=== PATIENT | male | born 2000 | race Caucasian/White ===

== ENCOUNTER 2021-02-26 16:55 | Emergency (ER) | payer OTHER, MEDICAID, SELFPAY ==
[2021-02-26 16:59] VITALS: BP 129/49; PULSE 80; RESP 19; TEMP 36.6; O2SAT 98; BMI 20.7
--- NOTE | 2021-02-26 18:55 | ED.WOUNDLAC ---
HPI - Wound/Laceration General Chief Complaint: Wound/Laceration Stated Complaint: Hand lac/Work injury Source: patient Mode of arrival: ambulatory Limitations: no limitations History of Present Illness HPI narrative: 20-year-old male presents to ED for right wrist laceration caused by Scissor he was using to cut up paper. Patient unknown when last tetanus shot. Patient denies any other trauma. Patient has a laceration occurred around today around 03:00 o'clock. Patient has complete range of motion of wrist and denies any numbness/tingling feeling Related Data Allergies Allergy/AdvReac Type Severity Reaction Status Date / Time No Known Allergies Allergy Verified 02/26/21 18:56 Review of Systems Review of Systems: Yes all other systems are reviewed and are negative Constitutional: Constitutional: Reports as per HPI and Reports no additional constitutional complaints Eyes: Eyes: Reports as per HPI and Reports no additional eye complaints ENT: Reports system reviewed and no additional complaints, except as documented and Reports as per HPI Cardiovascular: Cardiovascular: Reports as per HPI and Reports no additional cardiovascular complaints Respiratory: Respiratory: Reports as per HPI and Reports no additional respiratory complaints Gastrointestinal: Gastrointestinal: Reports as per HPI and Reports no additional gastrointestinal complaints Genitourinary: Genitourinary: Reports no additional male genitourinary complaints and Reports as per HPI Musculoskeletal: Musculoskeletal: Reports no additional musculoskeletal complaints and Reports as per HPI Comments: Right wrist laceration Integumentary/Breasts: Skin/Breast: Reports system reviewed and no additional complaints, except as docu and Reports as per HPI Neurologic: Reports system reviewed and no additional complaints, except as documented and Reports as per HPI Psychiatric: Psychiatric: Reports no additional psychiatric complaints and Reports as per HPI [facility] Social History Social History Advance Directives: No Advance Directives Information Provided: No Physical Exam Vital Signs: Vital Signs: Last Vital Signs Temp 98 F 02/26/21 16:59 Pulse 80 02/26/21 16:59 Resp 19 02/26/21 16:59 BP 129/49 L 02/26/21 16:59 Pulse Ox 98 02/26/21 16:59 Body Mass Index 20.7 Const: General: cooperative, healthy appearing, comfortable, no acute distress, well developed, alert, awake and Physically active Orientation/consciousness: patient oriented x3 HENMT: Head: Yes normal to inspection, Yes No palpable skull fracture present, Yes normocephalic, Yes atraumatic, No abrasion, No Acrocyanosis present, No Flores's sign, No contusion, No cranial bruits, No hematoma, No laceration, No occipital foramen tenderness, No palpable skull fracture, No raccoon eyes, No scalp lesion, No scalp tenderness, No Temporal artery tenderness present and No periorbital ecchymosis Eyes: General: appearance normal, both eyes and all related structures Neck: Neck: Yes normal visual inspection, Yes full ROM, Yes no lymphadenopathy, Yes no meningeal signs, Yes trachea midline, Yes supple and No tender Chest: Chest palpation & inspection: normal inspection of the chest and normal palpation of entire chest wall Resp: Effort & Inspection: normal respiratory effort and able to speak in complete sentences Auscultation: clear to auscultation bilaterally Cardio: Jugular venous distension: no JVD Heart sounds: S1 normal heart sound present and S2 normal heart sound present GI: Inspection: Yes normal to inspection and No abdominal wall ecchymosis Palpation (GI): Soft to palpation, not firm, nontender, no guarding and not rigid : General: No CVA tenderness and Yes no CVA tenderness Back/Spine/Pelvis: Back: no CVA tenderness, No CVA tenderness and No back tenderness Skin: General skin exam: no rashes or lesions noted and elasticity normal Neuro: General: patient oriented x3, gait normal, no meningeal signs and CN's II-XI intact bilaterally Cranial nerves: Yes CN's II-XII intact bilaterally Extrem: General: Yes normal to inspection and Yes full ROM Elbow/forearm/wrist images: 1. Laceration with active bleeding. Negative for bony exposure. Patient has complete flexion/extension of wrist. Patient able to do okay sign with all fingers. Radial pulse intact. Capillary refills intact. no puslating mass or bleeding from laceration. Neuro, Vascular, and motor exam is intact Psych: Appearance: grossly normal, well kempt and not disheveled Course Course Course Narrative: Laceration. Reevaluation(s) Reevaluation #1: No indication for x-ray. No breaking of scissor into skin. Patient has complete range of motion of wrist and has no pain. Negative for any tendon or nerve damage. Tetanus shot ordered. For mL of anesthesia lidocaine 2% placed into wrist. Wound clinic sterile saline and Betadine iodine. Five 3 Prolene used laceration repair. Three sutures placed Time: 19:09 MDM - Wound/Laceration MDM Narrative Medical decision making narrative: Wrist laceration Discharge Plan Discharge Clinical Impression: Laceration Patient Disposition: Home, Self-Care Instructions: Laceration (ED) Additional Instructions: Return to ED for any redness, pus discharge, foul odor, bluish black discoloration, increase in size, pulsatile mass, numbness/tingling, inability to flex or extend wrist, or any other concerning symptoms. Return to the ED 9 days for suture removal. Please follow-up with Worker neck Referrals: [facility] [Provider Group] - 2 days (Right wrist laceration) Stand Alone Forms: Work/School Release Interventions: ED Discharge Assessment Last Done: 02/26/21 19:33 Discharge Date/Time: 02/26/21 19:36 Print Language: Nepali
== END 2021-02-26 19:36 | disposition home or self-care (01) ==
PROVIDERS: Emergency Provider Internal Medicine
DX: S61.511A Laceration without foreign body of right wrist, initial encounter (principal); S60.811A Abrasion of right wrist, initial encounter; W27.2XXA Contact with scissors, initial encounter; Y93.9 Activity, unspecified; Y92.9 Unspecified place or not applicable; Y99.0 Civilian activity done for income or pay
CPT/HCPCS: 12001; 90471; 99283; 99284

== ENCOUNTER → 2021-03-02 14:22 | Outpatient (BNVA) | payer OTHER, SELFPAY | PROVIDERS: Visit Provider Physician Assistant Medical | DX: S61.511A Laceration without foreign body of right wrist, initial encounter (principal); W26.9XXA Contact with unspecified sharp object(s), initial encounter | CPT/HCPCS: 90715; 99202 ==

== ENCOUNTER → 2021-03-04 10:06 | Outpatient (BNVA) | payer OTHER, SELFPAY | PROVIDERS: Visit Provider Physician Assistant | DX: S61.511A Laceration without foreign body of right wrist, initial encounter (principal); W26.9XXA Contact with unspecified sharp object(s), initial encounter; Z48.02 Encounter for removal of sutures | CPT/HCPCS: 99214 ==

== ENCOUNTER → 2021-03-08 07:55 | Outpatient (BNVA) | payer OTHER, SELFPAY | PROVIDERS: Visit Provider Physician Assistant Medical | DX: S61.511A Laceration without foreign body of right wrist, initial encounter (principal); X58.XXXA Exposure to other specified factors, initial encounter | CPT/HCPCS: 99213 ==

== ENCOUNTER → 2021-03-14 10:20 | Outpatient (BNVA) | payer OTHER, SELFPAY | PROVIDERS: Visit Provider Physician Assistant Medical | DX: S61.511A Laceration without foreign body of right wrist, initial encounter (principal); W26.9XXA Contact with unspecified sharp object(s), initial encounter | CPT/HCPCS: 99213 ==